=== PATIENT | female | born 1995 | race Caucasian/White ===

== ENCOUNTER → 2018-07-09 | Outpatient (CLI) | payer OTHER ==
[~2018-07-09] MED LIST: AZIT200S47 PO; BCP PO; DEXAINTSOL PO; HYDR118S10 PO; TETRACAINESUCKERS MT
--- NOTE | 2018-07-09 17:20 | Diagnostic Imaging Report ---
INDICATION: Rectal bleeding. EXAM: Right decubitus abdomen FINDINGS: Gas pattern is normal. There are no pathologic masses or calcifications. IMPRESSION: Negative abdomen. There is no free air. Dictated by: Dictated on workstation # [id number]
--- NOTE | 2018-07-09 18:22 | Diagnostic Imaging Report ---
INDICATION: Diarrhea and blood in the stools. TIME OF EXAM: 03:57 p.m. FINDINGS: No free air is identified. The bowel gas pattern is nonobstructed. No significant stool load is identified in the colon. No pathologic calcifications are seen. IMPRESSION: No acute abnormalities detected. Dictated by: Dictated on workstation # [id number]
== END ==
LOC: RAD 15:20
PROVIDERS: ATTEND Nurse Practitioner Family
DX: K92.1 Melena (principal); K59.09 Other constipation; R19.7 Diarrhea, unspecified
CPT/HCPCS: 74018; 74019

== ENCOUNTER → 2018-12-16 | Outpatient (CLI) | payer OTHER ==
[~2018-12-16] MED LIST changes: -HYDR118S10 PO; +HYDR15SO6 PO
--- NOTE | 2018-12-16 14:08 | Diagnostic Imaging Report ---
INDICATION: Localized swelling and lump as well as redness and pain in the left breast medial side. TECHNIQUE: Sonographic interrogation of the area of lump in the left breast was performed. FINDINGS: There is a slightly irregular area of hypoechogenicity at the 9 o'clock location 12 cm from the nipple. There are some adjacent regions of hyperechogenicity. The combination of hyper and hypoechogenicity measures 1.9 x 1.4 x 1.3 cm. Associated vascularity is present. The area of hypoechogenicity measures approximately 0.9 x 0.7 x 1.1 cm. There is vascularity along the margins of this lesion but no internal vascularity is seen. There appears to be posterior acoustic enhancement. No abnormal shadowing is present. IMPRESSION: There is a mixed region of hyper and hypoechogenicity at the 9 o'clock location of the left breast 12 cm from the nipple. This corresponds to the patient's palpable abnormality as well as the area of swelling and redness to the skin. This is likely an infectious/inflammatory process, particularly in light of the patient's age. Neoplasm would be unlikely. Close interval sonographic followup after a course of antibiotic therapy is recommended with repeat left breast ultrasound in 3-4 weeks to confirm stability and/or clearing. ACR BI-RADS Category 3: Probably benign findings. Dictated by: Dictated on workstation # [id number]
== END ==
LOC: RAD 11:08
PROVIDERS: ATTEND Nurse Practitioner Family
DX: N63.20 Unspecified lump in the left breast, unspecified quadrant (principal); L53.9 Erythematous condition, unspecified
CPT/HCPCS: 76642

== ENCOUNTER → 2022-05-11 | Outpatient (CLI) | payer OTHER | END | disposition home or self-care (01) | LOC: PREOP 05:38 | PROVIDERS: ATTEND Internal Medicine | DX: Z01.818 Encounter for other preprocedural examination (principal) ==

== ENCOUNTER 2022-05-19 09:45 | Day surgery (SDC) | payer OTHER ==
--- NOTE | 2022-05-11 06:54 | HISTORY AND PHYSICAL ---
COLONOSCOPY HISTORY AND PHYSICAL HISTORY OF PRESENT ILLNESS: The patient is a 26-year-old white female who reports she has had some intermittent bright red blood per rectum since 2017, it is becoming more frequent and associated with caden-like stool for which she reports difficulty with evacuation having to strain. She also reports urge to go and not being able to pass anything, but gas. She reports unexplained 15-pound weight loss over this past year. She denies any significant associated abdominal pain, although she will have rectal pain from straining. She has been told on several occasions, she had no evidence for external hemorrhoids. She may have had a small internal hemorrhoid. She is not aware of any mass-like effect when she is wiping. FAMILY HISTORY: She is not aware of any family history for GI tract malignancy. Her mother has some form of heart problem, living in her 50s, and her mother has had total abdominal hysterectomy for reasons that do not appear to have anything to do with cancer. She does not know anything about father's side of the family as I recall including her father's health history. She is not aware of any family history of inflammatory bowel disease. PAST SURGICAL HISTORY: She had tonsillectomy and adenoidectomy as a child. 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 She does report daily vaping, her only form of smoking. She reports occasional small volume alcohol, averaging about a drink a month. REVIEW OF SYSTEMS: CONSTITUTIONAL: Pertinent for weight loss, unexplained without chills, fever, or night sweats. There is some associated fatigue. GASTROINTESTINAL: As noted in the HPI. PULMONARY: Denies cough, wheezing or shortness of breath. CARDIOVASCULAR: Denies chest discomfort, orthopnea, PND, pedal edema or syncope. PHYSICAL EXAMINATION: GENERAL: Reveals a white female who did not appear to be in acute distress, although little anxious. VITAL SIGNS: Weight 172 pounds, blood pressure 140/82. HEENT: Unremarkable. Sclerae nonicteric. No evidence for pallor. CHEST: Clear to auscultation. CARDIOVASCULAR: Reveals regular rate and rhythm without murmur, S3, or S4. ABDOMEN: Soft, supple without mass, organomegaly, or tenderness. EXTREMITIES: Show no cyanosis, clubbing or edema. ASSESSMENT AND PLAN: The patient is being set up for diagnostic colonoscopy due to rectal bleeding and weight loss with tenesmus. Prep instructions were given and questions were answered. Job ID: [id number] DocumentID: [id number] Dictated Date: 05/08/2022 15:46:34 Nurse Infection Control Date: 05/08/2022 16:23:00 Dictated By: KHALIDA MORRWO MD
[~2022-05-19] VITALS: Ht 165 cm; Wt 78.2 kg
[2022-05-19] VITALS (9 sets, daily range): BP systolic 69–129; BP diastolic 33–84
[~2022-05-19 09:45] MED LIST changes: +AMPH15CA5 PO
[2022-05-19] MEDS ORDERED: LACTATED RINGERS 1,000 ML IV STA (09:46)
--- NOTE | 2022-05-19 10:02 | Pre-Op Note & Conscious Sedat ---
Pre-Operative Progress Note Date H&P Reviewed: May 19, 2022 Time H&P Reviewed: 10:02 History & Physical: H&P Reviewed, Patient Examed, No changes noted Pre-Op Diagnosis: rectal bleeding Conscious Sedation Pre-Proced ASA Score 2 For ASA 3 and 4: Consider anesthesia and medical clearance. Also, for patients with a history of failed moderate sedation consider anesthesia. Airway Lungs Heart ASA score ASA 1: a normal healthy patient ASA 2: a patient with a mild systemic disease (mid diabetes, controlled hypertension, obesity ASA 3: a patient with a severe systemic disease that limits activity (angina, COPD, prior Myocardial infarction) ASA 4: a patient with an incapacitating disease that is a constant threat to life (CHF, renal failure) ASA 5: a moribund patient not expected to survive 24 hrs. (ruptured aneurysm) ASA 6: a declared brain- patient whose organs are being harvested. For emergent operations, add the letter E after the classification Mallampati Classification Grade 2 Sedation Plan Analgesia, Amnesia, Plan communicated to team members, Discussed options with patient/fam, Discussed risks with patient/fam The patient is an appropriate candidate to undergo the planned procedure, sedation, and anesthesia. The patient immediately re-assessed prior to indication. KAHLIDA MORROW MD May 19, 2022 10:02
[2022-05-19] MEDS ORDERED: ONDANSETRON 4 MG/2 ML (SDV) Z0FRAN ONE (10:35)
[2022-05-19] MEDS ORDERED: proPOfol 200 MG/20 ML (DIPRIVAN) VIAL IV ONE (10:35)
[2022-05-19] MEDS ORDERED: MIDAZOLAM 2 MG/2 ML (VERSED) VIAL ONE (10:36)
--- NOTE | 2022-05-19 11:05 | Progress Note-Post Operative ---
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 Anal central tone was normal and the perianal reflexes intact. No evidence for internal or external hemorrhoids. The colonoscope was then inserted into the rectum and under direct visualization advanced to the cecum. The cecum was identified by identification of the ileocecal valve and the cecal strap. Photographic documentation was obtained. Quality the prep was good. A careful inspection was made as the colonoscope was withdrawn. Findings there are no evidence for internal/external hemorrhoids and the rectum was unremarkable. There is a focal area of involving the distal sigmoid colon just proximal to the rectosigmoid junction of colonic inflammation there were circumferential areas of erythema but no evidence for ulceration this involved about 6 cm of the distal sigmoid colon biopsies were obtained and submitted for histopathology there was no significant bleeding. There was no evidence for diverticular disease no other sigmoid colonic adenopathy appreciated. The descending colon splenic flexure transverse colon hepatic flexure ascending colon cecum and ileocecal valve were unremarkable to gross inspection. A/P 1. Focal area of colonic inflammatory change noted in the distal sigmoid colon the likely source of this patient's intermittent bleeding awaiting histopathology report before making further recommendations. KHALIDA MORROW MD May 19, 2022 11:05
--- NOTE | 2022-05-19 11:50 | Anesthesia-General Post-Op ---
MAC Patient Condition Mental Status/LOC: Same as Preop Cardiovascular: Satisfactory Nausea/Vomiting: Absent Respiratory: Satisfactory Pain: Controlled Complications: Absent Post Op Complications Complications None Follow Up Care/Instructions Patient Instructions None needed. Anesthesiology Discharge Order Discharge Order Patient is doing well, no complaints, stable vital signs, no apparent adverse anesthesia problems. No complications reported per nursing. TERESA SIMONS CRNA May 19, 2022 11:50
== END 2022-05-19 12:30 | disposition home or self-care (01) ==
LOC: ENDO 09:45
PROVIDERS: ATTEND Internal Medicine
DX: K62.5 Hemorrhage of anus and rectum (principal); F17.290 Nicotine dependence, other tobacco product, uncomplicated
CPT/HCPCS: 84703